=== PATIENT | female | born 1950 | race Caucasian/White ===

== ENCOUNTER 2016-09-29 13:27 | Observation (INO) ==
[2016-09-29] MEDS ORDERED: 0.9 % Sodium Chloride 1,000 ML ONE ×3 (13:51→20:01)
[2016-09-29] MEDS ORDERED: 0.9 % Sodium Chloride 1,000 ML IVC ONE (13:53)
--- NOTE | 2016-09-29 13:59 | Emergency Department Note ---
Disposition Clinical Impression: Generalized muscle weakness, Hyponatremia Hypotension Qualifiers: Hypotension type: unspecified hypotension type Qualified Code(s): I95.9 - Hypotension, unspecified Disposition: Admitted As Inpatient Condition: Good Referrals: Tanner Thomas CNP [Primary Care Provider] - Forms: Work/School Release, ED Satisfaction Letter Time of Disposition: 17:47 Weakness HPI - General Chief complaint: ED General Medical Stated complaint: getting in car, started to fall, helped to Source: patient, family () Mode of arrival: EMS Limitations: no limitations Nursing Notes Reviewed: Yes Vital Signs Reviewed: Yes - History of Present Illness Pt Subjective Complaint: generalized weakness/fatigue Onset (ago): week(s) Duration: constant Location: generalized Migration: none Pain Severity: none Pain Scale: 0 Improves with: none Worsens with: movement, exertion Context: history of similar (Hospitalized on 09/18/16 for the same. Discharged on 09/21/16. She was also noted to have urinary tract infection at that time and is currently still on antibiotics.) - Related Data Home Medications Medication Instructions Recorded Confirmed Abatacept [Orencia] 125 mg SQ QWEEK 09/18/16 09/29/16 Leflunomide 20 mg PO DAILY 09/18/16 09/29/16 Lisinopril [Zestril] 5 mg PO DAILY 09/18/16 09/29/16 Metoprolol XL (24 HR) Succ [Toprol 50 mg PO DAILY 09/18/16 09/29/16 Xl] PredniSONE 3 mg PO DAILY 09/18/16 09/29/16 Previous Rx's Medication Instructions Recorded OxyCODONE Immed Rel [Roxicodone 5 10 mg PO Q6HR PRN #14 tablet 09/21/16 MG] Pregabalin [Lyrica] 25 mg PO TID #90 capsule 09/21/16 Ciprofloxacin [Cipro] 500 mg PO BID #28 tablet 09/22/16 Allergies Allergy/AdvReac Type Severity Reaction Status Date / Time No Known Allergies Allergy Verified 09/17/16 17:14 All systems ED: reviewed and negative except as stated. Constitutional: Denies: fever, chills Eyes: Denies: vision change ENT ED: Denies: ear pain, throat pain Cardiovascular: Denies: chest pain, palpitations Respiratory: Denies: cough, dyspnea, wheezes Gastrointestinal: Denies: abdominal pain, nausea, vomiting, diarrhea, hematemesis, melena, hematochezia Genitourinary: Denies: urgency, dysuria, frequency Musculoskeletal: Reports: back pain (Chronic, unchanged.) Integumentary: Denies: rash Neurological: Reports: weakness (Diffuse). Denies: headache, numbness, paresthesias Endocrine: Reports: fatigue Past Medical History - Past Medical History Medical history: Reports: arthritis, hypertension, osteoporosis, RA, renal disease, other Surgical history: Reports: other Psychiatric history: Reports: no psych history, other - Social History Smoking Status: Never smoker Smokeless Tobacco Status: No Alcohol use: Reports: none Drug use: Reports: none Physical Exam - General Limitations: no limitations General appearance: alert, in no apparent distress, obese - Head Head exam: atraumatic, normocephalic - Eye Eye exam: Present: PERRL, EOMI, other (Conjunctiva are pale). Absent: scleral icterus, conjunctival injection - ENT ENT exam: normal oropharynx (Oral mucosa is pale), mucous membranes moist, TM's normal bilaterally - Neck Neck exam: Present: normal inspection, full ROM, trachea midline. Absent: lymphadenopathy, thyromegaly - Chest Chest inspection: Present: normal inspection, symmetric chest wall rise - Respiratory Respiratory exam: Present: normal lung sounds bilaterally. Absent: respiratory distress, wheezes - Cardiovascular Cardiovascular exam: Present: regular rate, normal rhythm, normal heart sounds - Abdominal Exam Abdominal exam: Present: soft, Non-Tender, other (Obese). Absent: organomegaly , mass - Extremities Exam Extremities exam: Present: full ROM. Absent: tenderness, normal capillary refill (Slow capillary refill) - Neurological Exam Neurological exam: Present: alert, oriented X3, CN II-XII intact, reflexes normal. Absent: motor sensory deficit (Diffusely weak, symmetrical lower extremity strength. 3+ grants and contracts assistant on the right, 2+ on the left.) - Psychiatric Psychiatric exam: Present: normal affect, normal mood - Skin Skin exam: Present: warm, dry, pallor. Absent: cyanosis, diaphoresis Course - Reevaluation(s) Reevaluation #1: The patient states that she is Congregational, she does not want any blood products. Time: 14:01 Reevaluation #2: 1 L of normal saline infused. The patient's blood pressure is 120/76. Her initial troponin is 0.04. A repeat 2 hour level has been ordered. Her sodium today is 123, it was 136 at discharge from the hospital approximately a week ago. Time: 14:57 Reevaluation #3: Discussed with Dr. Snow. He accepts the patient for admission. Time: 17:25 Vital Signs Temperature 97.3 F L 09/29/16 13:30 Blood Pressure 83/38 09/29/16 13:30 Temperature 97.3 F L 09/29/16 13:33 Pulse Rate 91 09/29/16 17:30 Respiratory Rate 18 09/29/16 17:30 Blood Pressure 127/71 09/29/16 17:30 O2 Sat by Pulse Oximetry 95 09/29/16 17:30 Oxygen Delivery Oxygen Delivery Room Air Weakness - MDM Narrative Medical decision making narrative: She has significant hyponatremia which is likely contributing factor to her generalized weakness. Her grants and contracts assistant strength decrease her left hand is unchanged from her previous exam is consistent with her cervical radiculopathy. Her hypotension corrected with IV normal saline. She work or admission, she is too weak to go home. We will replace her sodium, she may need further workup for the etiology of her hyponatremia. She may need placement for rehabilitation. - Differential Diagnosis Differential Diagnosis: Likely: acute myocardial infarction, anemia, hypoglycemia, rhabdomyolysis, sepsis/infection, dehydration, medication effect, [place], metabolic, thyroid/endocrine disorder - Medical Records Medical records reviewed: Yes I reviewed the patient's medical records. Review of her discharge summary shows that on her physical exam grasping strength in her left hand was weaker than her right. On 09/18/16 and her hemoglobin was 11.0 and her sodium was 123. - Lab Data Lab results reviewed: Yes I reviewed the patient's lab results. Result diagrams: 09/29/16 13:45 09/29/16 13:45 Lab Results 09/29/16 09/29/16 09/29/16 Range/Units 13:45 13:45 13:45 WBC 5.4 (4.3-11.1) K/mcL RBC 3.96 (3.82-4.97) M/mcL Hgb 10.9 L (11.5-15.4) g/dL Hct 31.3 L (35.3-44.9) % MCV 79.0 L (83.0-100.0) fL MCH 27.5 L (28.0-33.3) pg MCHC 34.8 (31.6-35.5) g/dL RDW 14.2 (11.5-14.5) % Plt Count 176 (140-400) K/mcL MPV 11.4 (9.4-12.4) fL Immature Gran % 0.6 (0-4) % Seg Neutrophils % 76.8 % Lymphocytes % 9.7 % Monocytes % 10.6 % Eosinophils % 1.7 % Basophils % 0.6 % Neutrophils # 4.1 (1.6-8.9) K/mcL Lymphocytes # 0.5 L (0.6-4.6) K/mcL Monocytes # 0.6 (0.0-1.3) K/mcL Eosinophils # 0.1 (0.0-0.6) K/mcL Basophils # 0.0 (0.0-0.2) K/mcL VBG Lactic Acid (0.5-2.2) mmol/L Sodium 123 L (136-145) mEq/L Potassium 4.8 H (3.5-4.5) mEq/L Chloride 90 L (98-109) mEq/L Carbon Dioxide 19 (19-29) mEq/L BUN 19 (7-20) mg/dL Creatinine 0.99 (0.57-1.11) mg/dL Est GFR ( Amer) > 60 (> 60) Est GFR (Non-Af Amer) 56 L (> 60) BUN/Creatinine Ratio 19 (6-26) Glucose 104 H (70-99) mg/dL Calculated Osmolality 259 L (280-300) Calcium 9.6 (8.6-10.8) mg/dL Total Bilirubin 0.5 (0.2-1.2) mg/dL AST 44 H (5-34) Units/L ALT 34 (0-55) Units/L Alkaline Phosphatase 220 H (38-126) Units/L Creatine Kinase (29-168) Units/L Troponin I 0.04 H* (0-0.03) ng/mL Serum Total Protein 6.1 (6.0-8.3) g/dL Albumin 2.2 L (3.5-5.0) g/dL Globulin 3.9 H (2.4-3.5) g/dL Albumin/Globulin Ratio 0.6 L (1.1-2.2) TSH (0.350-4.840) mcIU/mL Urine Color (Yellow) Urine Clarity (Clear) Urine pH (5.0-8.0) pH Units Ur Specific [place] (1.010-1.025) Urine Protein (Neg-Trace) mg/dL Urine Glucose (UA) (Normal) mg/dL Urine Ketones (Negative) mg/dL Urine Blood (Negative) Urine Nitrite (Negative) Urine Bilirubin (Negative) Urine Urobilinogen (Normal) mg/dL Ur Leukocyte Esterase (Negative) Urine Microscopic RBC (0-3) per hpf Urine Microscopic WBC (0-3) per hpf Ur Squamous Epith Cells (None-Few) per lpf Ur Renal Epithelial Cell (None-Few) per hpf Amorphous Sediment (Few) Ur Culture Indicated? (NO) 09/29/16 09/29/16 09/29/16 Range/Units 13:45 13:51 14:12 WBC (4.3-11.1) K/mcL RBC (3.82-4.97) M/mcL Hgb (11.5-15.4) g/dL Hct (35.3-44.9) % MCV (83.0-100.0) fL MCH (28.0-33.3) pg MCHC (31.6-35.5) g/dL RDW (11.5-14.5) % Plt Count (140-400) K/mcL MPV (9.4-12.4) fL Immature Gran % (0-4) % Seg Neutrophils % % Lymphocytes % % Monocytes % % Eosinophils % % Basophils % % Neutrophils # (1.6-8.9) K/mcL Lymphocytes # (0.6-4.6) K/mcL Monocytes # (0.0-1.3) K/mcL Eosinophils # (0.0-0.6) K/mcL Basophils # (0.0-0.2) K/mcL VBG Lactic Acid 1.9 (0.5-2.2) mmol/L Sodium (136-145) mEq/L Potassium (3.5-4.5) mEq/L Chloride (98-109) mEq/L Carbon Dioxide (19-29) mEq/L BUN (7-20) mg/dL Creatinine (0.57-1.11) mg/dL Est GFR ( Amer) (> 60) Est GFR (Non-Af Amer) (> 60) BUN/Creatinine Ratio (6-26) Glucose (70-99) mg/dL Calculated Osmolality (280-300) Calcium (8.6-10.8) mg/dL Total Bilirubin (0.2-1.2) mg/dL AST (5-34) Units/L ALT (0-55) Units/L Alkaline Phosphatase (38-126) Units/L Creatine Kinase 360 H (29-168) Units/L Troponin I (0-0.03) ng/mL Serum Total Protein (6.0-8.3) g/dL Albumin (3.5-5.0) g/dL Globulin (2.4-3.5) g/dL Albumin/Globulin Ratio (1.1-2.2) TSH 1.998 (0.350-4.840) mcIU/mL Urine Color Yellow (Yellow) Urine Clarity Clear (Clear) Urine pH 5.5 (5.0-8.0) pH Units Ur Specific [place] <= 1.005 L (1.010-1.025) Urine Protein Negative (Neg-Trace) mg/dL Urine Glucose (UA) Normal (Normal) mg/dL Urine Ketones Negative (Negative) mg/dL Urine Blood Small H (Negative) Urine Nitrite Negative (Negative) Urine Bilirubin Negative (Negative) Urine Urobilinogen Normal (Normal) mg/dL Ur Leukocyte Esterase Negative (Negative) Urine Microscopic RBC 0-3 (0-3) per hpf Urine Microscopic WBC 0-3 (0-3) per hpf Ur Squamous Epith Cells Few (None-Few) per lpf Ur Renal Epithelial Cell Moderate H (None-Few) per hpf Amorphous Sediment Few (Few) Ur Culture Indicated? NO (NO) 09/29/16 Range/Units 16:06 WBC (4.3-11.1) K/mcL RBC (3.82-4.97) M/mcL Hgb (11.5-15.4) g/dL Hct (35.3-44.9) % MCV (83.0-100.0) fL MCH (28.0-33.3) pg MCHC (31.6-35.5) g/dL RDW (11.5-14.5) % Plt Count (140-400) K/mcL MPV (9.4-12.4) fL Immature Gran % (0-4) % Seg Neutrophils % % Lymphocytes % % Monocytes % % Eosinophils % % Basophils % % Neutrophils # (1.6-8.9) K/mcL Lymphocytes # (0.6-4.6) K/mcL Monocytes # (0.0-1.3) K/mcL Eosinophils # (0.0-0.6) K/mcL Basophils # (0.0-0.2) K/mcL VBG Lactic Acid (0.5-2.2) mmol/L Sodium (136-145) mEq/L Potassium (3.5-4.5) mEq/L Chloride (98-109) mEq/L Carbon Dioxide (19-29) mEq/L BUN (7-20) mg/dL Creatinine (0.57-1.11) mg/dL Est GFR ( Amer) (> 60) Est GFR (Non-Af Amer) (> 60) BUN/Creatinine Ratio (6-26) Glucose (70-99) mg/dL Calculated Osmolality (280-300) Calcium (8.6-10.8) mg/dL Total Bilirubin (0.2-1.2) mg/dL AST (5-34) Units/L ALT (0-55) Units/L Alkaline Phosphatase (38-126) Units/L Creatine Kinase (29-168) Units/L Troponin I 0.04 H* (0-0.03) ng/mL Serum Total Protein (6.0-8.3) g/dL Albumin (3.5-5.0) g/dL Globulin (2.4-3.5) g/dL Albumin/Globulin Ratio (1.1-2.2) TSH (0.350-4.840) mcIU/mL Urine Color (Yellow) Urine Clarity (Clear) Urine pH (5.0-8.0) pH Units Ur Specific [place] (1.010-1.025) Urine Protein (Neg-Trace) mg/dL Urine Glucose (UA) (Normal) mg/dL Urine Ketones (Negative) mg/dL Urine Blood (Negative) Urine Nitrite (Negative) Urine Bilirubin (Negative) Urine Urobilinogen (Normal) mg/dL Ur Leukocyte Esterase (Negative) Urine Microscopic RBC (0-3) per hpf Urine Microscopic WBC (0-3) per hpf Ur Squamous Epith Cells (None-Few) per lpf Ur Renal Epithelial Cell (None-Few) per hpf Amorphous Sediment (Few) Ur Culture Indicated? (NO) - Radiology Data Radiology results reviewed: Yes I reviewed the patient's radiology results. ITS Impressions Chest X-Ray 09/29/16 13:51 IMPRESSION: Stable portable study. D/ / Liberty Mcadams Cha, MD / Liberty Mcadams Cha, MD Interpreting Provider: Liberty Mcadams Cha, MD - EKG Data EKG attestation: Yes I reviewed and interpreted this EKG. EKG results narrative: Sinus tachycardia, rate of 109, nonspecific ST-T changes. Rhythm strip shows sinus rhythm with a rate of 109, IN interval 170 ms, QRS of 87 ms with no other ectopy as interpreted by me. This is compared to a tracing dated 09/17/16, no change other than the sinus tachycardia.
[2016-09-29 14:11] LABS: Basophils % 0.6 %; Eosinophils # 0.1 K/mcL (0.0-0.6); Eosinophils % 1.7 %; Hematocrit 31.3 % (35.3-44.9); Hemoglobin 10.9 g/dL (11.5-15.4); Immature Granulocytes % 0.6 % (0-4); Lymphocytes # 0.5 K/mcL (0.6-4.6); Lymphocytes % 9.7 %; Mean Corpuscular HGB Conc 34.8 g/dL (31.6-35.5); Mean Corpuscular Hemoglobin 27.5 pg (28.0-33.3); Mean Platelet Volume 11.4 fL (9.4-12.4); Monocytes # 0.6 K/mcL (0.0-1.3); Monocytes % 10.6 %; Neutrophils # 4.1 K/mcL (1.6-8.9); Platelet Count 176 K/mcL (140-400); Red Blood Count 3.96 M/mcL (3.82-4.97); Red Cell Distribution Width 14.2 % (11.5-14.5); Segmented Neutrophils % 76.8 %
[2016-09-29 14:25] LABS: Alanine Aminotransferase 34 Units/L (0-55); Albumin 2.2 g/dL (3.5-5.0); Albumin/Globulin Ratio 0.6 (1.1-2.2); Alkaline Phosphatase 220 Units/L (38-126); Aspartate Amino Transferase 44 Units/L (5-34); BUN/Creatinine Ratio 19 (6-26); Bilirubin,Total 0.5 mg/dL (0.2-1.2); Blood Urea Nitrogen 19 mg/dL (7-20); Calcium 9.6 mg/dL (8.6-10.8); Carbon Dioxide 19 mEq/L (19-29); Chloride 90 mEq/L (98-109); Globulin 3.9 g/dL (2.4-3.5); Glucose 104 mg/dL (70-99); Osmolality,Calculated 259 (280-300); Potassium 4.8 mEq/L (3.5-4.5); Sodium 123 mEq/L (136-145); Total Protein 6.1 g/dL (6.0-8.3); eGFR For African Americans > 60 (> 60); eGFR For Non-African Americans 56 (> 60)
[2016-09-29 14:44] LABS: Thyroid Stimulating Hormone 1.998 mcIU/mL (0.350-4.840)
[2016-09-29] MEDS ORDERED: 0.9 % Sodium Chloride 1,000 ML IVC SCH ×3 (15:00→19:16)
[2016-09-29 16:29] LABS: Bilirubin,Urine Negative (Negative); Blood,Urine Small (Negative); Clarity,Urine Clear (Clear); Color,Urine Yellow (Yellow); Glucose,Urine (UA) Normal (Normal); Ketones,Urine Negative (Negative); Leukocyte Esterase,Urine Negative (Negative); Nitrite,Urine Negative (Negative); PH,Urine 5.5 pH Units (5.0-8.0); Protein,Urine Negative (Neg-Trace); Specific Gravity,Urine <= 1.005 (1.010-1.025); Urobilinogen,Urine Normal (Normal)
[2016-09-29 16:51] LABS: RBC,Urine 0-3 per hpf (0-3); Renal Epithelial Cells,Urine Moderate per hpf (None-Few); Squamous Epithelial Cell,Urine Few per lpf (None-Few); WBC,Urine 0-3 per hpf (0-3)
[2016-09-29 16:52] LABS: Amorphous Sediment,Urine Few (Few)
[2016-09-29] MEDS ORDERED: Acetaminophen 325 MG TABLET PO ONE (18:53)
[2016-09-29] MEDS ORDERED: ABATACEPT 125 MG SQ SCH (19:16)
[2016-09-29] MEDS ORDERED: Naloxone 0.4 MG/ML INJ IVP PRN ×3 (19:16→20:01)
[2016-09-29] MEDS ORDERED: *HR* OxyCODONE Immed Rel 5 MG TABLET PO PRN (19:16)
[2016-09-29] MEDS ORDERED: Pregabalin 25 MG CAPSULE PO SCH (21:00)
[2016-09-29] MEDS: 0.9 % Sodium Chloride 1,000 ML IVC SCH (21:12)
[2016-09-29] MEDS: Pregabalin 25 MG CAPSULE PO SCH (21:15)
--- NOTE | 2016-09-29 21:32 | Electrocardiograph Report ---
[facility] Test Date: 2016-09-29 Pat Name: Fanta Leiva Department: [id number] Room: [facility] Gender: F Supervisor [employer]: : 1950 Requested By: Order Number: [id number] Leobardo MD: Sara Koenig Measurements Intervals [place] Rate: 109 P: 28 WV: 170 QRS: 37 QRSD: 87 T: 27 QT: 336 QTc: 400 Interpretive Statements SINUS TACHYCARDIA ABNORMAL RHYTHM ECG Electronically Signed On 09-29-2016 21:30:53 EST by Sara Koenig
[2016-09-29] MEDS: *HR* OxyCODONE Immed Rel 5 MG TABLET PO PRN (22:43)
[2016-09-30] MEDS: 0.9 % Sodium Chloride 1,000 ML IVC SCH ×4 (04:47→12:26)
[2016-09-30] MEDS ORDERED: *HR* Enoxaparin 40 MG/0.4 ML SYRINGE SQ SCH ×2 (06:00)
[2016-09-30 08:53] LABS: BUN/Creatinine Ratio 18 (6-26); Blood Urea Nitrogen 15 mg/dL (7-20); Calcium 8.9 mg/dL (8.6-10.8); Carbon Dioxide 21 mEq/L (19-29); Chloride 104 mEq/L (98-109); Glucose 81 mg/dL (70-99); Osmolality,Calculated 278 (280-300); Potassium 3.8 mEq/L (3.5-4.5); Sodium 134 mEq/L (136-145); eGFR For African Americans > 60 (> 60); eGFR For Non-African Americans > 60 (> 60)
[2016-09-30] MEDS ORDERED: Leflunomide [Leflunomide] 20 MG PO SCH (09:00)
[2016-09-30] MEDS: Pregabalin 25 MG CAPSULE PO SCH ×3 (09:22→20:46)
[2016-09-30] MEDS: Leflunomide [Leflunomide] 20 MG PO SCH (09:22)
--- NOTE | 2016-09-30 11:51 | Internal Med History&Physical ---
Date of Encounter: 09/30/16 Time of Encounter: 11:10 Assessment and Plan (1) Hyponatremia Current visit: Yes Status: Acute She admits she drinks 3-4 quarts of liquid daily. Will decrease fluid intake and monitor lab work (2) Weight loss Current visit: Yes Status: Acute Will ordered CT of chest and abdomen/pelvis. TSH was normal in emergency room. (3) Anemia Current visit: No Status: Chronic We will order anemia testing in a.m. Qualifiers: Anemia type: unspecified type Qualified Code(s): D64.9 - Anemia, unspecified (4) CKD (chronic kidney disease) Current visit: No Status: Chronic We will monitor renal indices. Qualifiers: Chronic kidney disease stage: stage 3 (moderate) Qualified Code(s): N18.3 - Chronic kidney disease, stage 3 (moderate) (5) Hx of rheumatoid arthritis Current visit: No Status: Chronic Internal Medicine - H&P: HPI Chief complaint: Hyponatremia and fall Admitted From: Home Plans for Post Hospital Care: Home History of present illness: Ms. Leiva is a 66 year old female who came to the emergency room after having a fall while attempting to get in her car. Her caught her before she hit the ground and sustained any significant injuries. She was evaluated in emergency room and found to have hyponatremia and microcytic anemia. She was admitted to [facility] for ongoing care needs. She was hospitalized at [facility] September 18 with progressive upper extremity weakness more on the left than the right. She had MRI of her head and cervical spine. There was multilevel degenerative disc disease exacerbating a congenitally narrow cervical spinal canal. There was minimal myelomalacia seen at C4-6. The MRI of the brain was generally unremarkable. She was seen by neurology and neurosurgery. Conservative medical therapy rather than surgery was recommended at this time. She states she has been getting generally weaker for several years with decreased muscle strength in her legs and arms. She uses a walker to ambulate at home but also has a motorized power chair that she bought without specific prescription by a PCP. She has history of rheumatoid arthritis diagnosed many years ago. She was told she had some features of lupus but confirmatory tests were not positive. She had sciatica in the past. She denies gout or other documented bone joint or muscle disorders. She does not recall having LS spine evaluation or EMG/nerve conduction studies. Past Med Surg Social Fam HX - Past Medical History Medical history: arthritis, hypertension, osteoporosis, RA, renal disease, other Psychiatric history: no psych history, other - Past Surgical History Surgical History: other - Social History Smoking Status: Never smoker Smokeless Tobacco Status: No Alcohol use: none Drug use: none - Family History Mother Living Status: Hx Family Cardiac Disorders: Yes (aortic anyeurism) Internal Medicine - H&P: Meds Abatacept [Orencia] 125 mg SQ QWEEK 09/18/16 [History] Leflunomide 20 mg PO DAILY 09/18/16 [History] Lisinopril [Zestril] 5 mg PO DAILY 09/18/16 [History] Metoprolol XL (24 HR) Succ [Toprol Xl] 50 mg PO DAILY 09/18/16 [History] PredniSONE 3 mg PO DAILY 09/18/16 [History] OxyCODONE Immed Rel [Roxicodone 5 MG] 10 mg PO Q6HR PRN #14 tablet 09/21/16 [Rx] Pregabalin [Lyrica] 25 mg PO TID #90 capsule 09/21/16 [Rx] Ciprofloxacin [Cipro] 500 mg PO BID #28 tablet 09/22/16 [Rx] Allergies No Known Allergies Allergy (Verified 09/17/16 17:14) All Systems PM: A 10-system review of systems was performed and is negative for pertinent findings except as documented above in the HPI. Review of systems: Gen.: She states her weight has decreased from 237 pounds one year ago to present weight of approximately 180 pounds. This was unintentional. Cardiovascular: She has history of hypertension but denies MS heart failure angina DVT or pulmonary embolus Respiratory: She is a lifelong nonsmoker and has no known chronic lung disease GI: She denies disorders of her liver gallbladder or exocrine pancreas : She has chronic kidney disease stage III and follows with Dr. Vasquez. She denies other kidney or bladder disorders Neurologic: She denies large distribution strokes or seizures. Endocrine: She denies diabetes thyroid disease or hyperlipidemia Hematology/oncology: She has been diagnosed with anemia. She denies internal malignancies Psychiatric: She has feelings of depression at times. She denies other mental health issues Musk skeletal: As per history of present illness - Constitutional Vitals: Temp Pulse Resp BP Pulse Ox 98.2 F 104 18 107/70 97 09/30/16 10:29 09/30/16 10:29 09/30/16 10:29 09/30/16 10:29 09/30/16 10:29 Exam: Gen.: She is a well-developed well-nourished female lying in bed who appears in no significant distress at present time. HEENT: Head is atraumatic and normocephalic. Eyes: EOMI. There is no scleral icterus. Mouth: Mucosa is moist. Neck: Supple and nontender. There is no thyromegaly or adenopathy noted. Heart: Regular rate approximately 104/m. No murmurs or gallops are heard. Lungs: No wheezes or crackles heard. Abdomen: Soft and nontender. No masses or guarding are noted. 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 She has some contractures at the DIP joints on some fingers. She has slight ulnar deviation present. There is no pitting edema of her feet or lower legs. Neurologic: Mental status: She is talkative and a good historian. Cranial nerves: Smile is symmetric. Forehead wrinkles bilaterally. Tongue protrudes midline. EOMI. Motor: She has weakness on plantar flexion and dorsiflexion of the right ankle. She has normal strength on plantar flexion of the left foot but weakness on attempted dorsiflexion. She has no pronator drift. Cerebellar : Finger to nose is intact bilaterally. Skin: Warm and dry Internal Med - H&P Results - Labs CBC & Chem 7: 09/29/16 13:45 09/30/16 07:38 Labs: BMP 09/30/16 07:38 Sodium 134 L D Potassium 3.8 D Chloride 104 Carbon Dioxide 21 BUN 15 Creatinine 0.84 Glucose 81 Calcium 8.9 Cardiac Enzymes 09/30/16 Range/Units 07:38 Troponin I 0.05 H* (0-0.03) ng/mL
[2016-09-30] MEDS: *HR* OxyCODONE Immed Rel 5 MG TABLET PO PRN ×2 (12:31→21:14)
[2016-10-01] MEDS: *HR* Enoxaparin 40 MG/0.4 ML SYRINGE SQ SCH (06:07)
[2016-10-01 06:32] LABS: Basophils % 1.6 %; Eosinophils # 0.1 K/mcL (0.0-0.6); Eosinophils % 7.3 %; Hematocrit 26.2 % (35.3-44.9); Hemoglobin 8.5 g/dL (11.5-15.4); Immature Granulocytes % 0.5 % (0-4); Lymphocytes # 0.6 K/mcL (0.6-4.6); Lymphocytes % 30.2 %; Mean Corpuscular HGB Conc 32.4 g/dL (31.6-35.5); Mean Corpuscular Volume 83.2 fL (83.0-100.0); Mean Platelet Volume 11.4 fL (9.4-12.4); Monocytes # 0.4 K/mcL (0.0-1.3); Monocytes % 18.2 %; Neutrophils # 0.8 K/mcL (1.6-8.9); Platelet Count 177 K/mcL (140-400); Red Blood Count 3.15 M/mcL (3.82-4.97); Red Cell Distribution Width 14.8 % (11.5-14.5); Segmented Neutrophils % 42.2 %
[2016-10-01 07:17] LABS: BUN/Creatinine Ratio 13 (6-26); Blood Urea Nitrogen 10 mg/dL (7-20); Calcium 9.2 mg/dL (8.6-10.8); Carbon Dioxide 18 mEq/L (19-29); Chloride 108 mEq/L (98-109); Glucose 77 mg/dL (70-99); Osmolality,Calculated 278 (280-300); Potassium 3.9 mEq/L (3.5-4.5); Sodium 135 mEq/L (136-145); Uric Acid 6.3 mg/dL (2.6-6.0); eGFR For African Americans > 60 (> 60); eGFR For Non-African Americans > 60 (> 60)
[2016-10-01 07:58] LABS: Anisocytosis 2+ (Not Present); Platelet Estimate Normal (Normal); Poikilocytosis 2+ (Not Present)
[2016-10-01 09:05] LABS: Folate 9.6 ng/mL (7.0-31.4)
[2016-10-01] MEDS: Leflunomide [Leflunomide] 20 MG PO SCH (09:19)
[2016-10-01] MEDS: *HR* OxyCODONE Immed Rel 5 MG TABLET PO PRN ×2 (09:30→22:20)
[2016-10-01] MEDS: Pregabalin 25 MG CAPSULE PO SCH ×3 (09:30→20:33)
[2016-10-01 13:53] LABS: % Iron Saturation 17 % (15-50); Iron 30 mcg/dL (50-170); Transferrin 124 mg/dL (180-382)
[2016-10-01 14:07] LABS: Ferritin 1100 ng/ml (5-204)
--- NOTE | 2016-10-01 14:27 | Discharge Summary ---
Date of Encounter: 10/01/16 Time of Encounter: 12:30 - Discharge Diagnosis (1) Hyponatremia Priority: Primary Status: Acute (2) Weight loss Priority: Secondary Status: Chronic (3) Anemia Priority: Secondary Status: Chronic Qualifiers: Anemia type: unspecified type Qualified Code(s): D64.9 - Anemia, unspecified (4) CKD (chronic kidney disease) Priority: Secondary Status: Chronic Qualifiers: Chronic kidney disease stage: stage 3 (moderate) Qualified Code(s): N18.3 - Chronic kidney disease, stage 3 (moderate) (5) Hx of rheumatoid arthritis Priority: Secondary Status: Chronic - Discharge Medications Home Medications: Abatacept [Orencia] 125 mg SQ QWEEK 09/18/16 [History] Leflunomide 20 mg PO DAILY 09/18/16 [History] Lisinopril [Zestril] 5 mg PO DAILY 09/18/16 [History] Metoprolol XL (24 HR) Succ [Toprol Xl] 50 mg PO DAILY 09/18/16 [History] PredniSONE 3 mg PO DAILY 09/18/16 [History] OxyCODONE Immed Rel [Roxicodone 5 MG] 10 mg PO Q6HR PRN #14 tablet 09/21/16 [Rx] Pregabalin [Lyrica] 25 mg PO TID #90 capsule 09/21/16 [Rx] Allergies/Adverse Reactions: Allergies No Known Allergies Allergy (Verified 09/17/16 17:14) Procedures/tests Complete & Pending: Procedures Performed prior 72 hours Category Date Time Status CT abd pelvis wo no iv no oral [CT] Routine Cat Scan 09/30/16 11:[address] chest wo con [CT] Routine Cat Scan 09/30/16 11:[address] lumbar spine wo con [CT] Routine Cat Scan 09/30/16 11:59 Draft Date of admission: 09/29/16 18:45 Primary care physician: Tanner Thomas CNP Consults: 09/30/16 11:40 Consult to Occupational Therapy [CONS] Routine Comment: Evaluate, develop and implement POC Consult to Physical Therapy [CONS] Routine Comment: Evaluate, develop and implement POC - Patient Status Disposition: Home Health Service Condition: Good Overall status at discharge: patient is progressing back to baseline - Discharge Instructions Follow Up With: Cecil,Ali N, SOFTWARE TEST TECHNICIAN [Primary Care Provider] - 1 week - Diet and Activity Activity: as per physical therapy, resume usual activities as tolerated Hospital course: Ms. Leiva is a 66 year old female who came to the emergency room after having a fall while attempting to get in her car. Her caught her before she hit the ground and sustained any significant injuries. She was evaluated in emergency room and found to have hyponatremia and microcytic anemia. She was admitted to [facility] for ongoing care needs. Initial orders were written by the emergency room physician. I saw her on September 30 and performed the history and physical. Repeat lab work showed serum sodium rising to 135 by the day of discharge. Her oral intake was not restricted. Uncertain if the initial sodium level of 123 was accurate. Anemia testing showed iron 30, transferrin saturation 17% (normal), ferritin 1100, B12 721, and folate 9.6. I do not feel she would benefit from iron therapy. ESR returned elevated at 84. I will let her PCP and party coordinator further address this. She had physical therapy and occupational therapy evaluations. She felt slightly improved and more stable on ambulation on October 01. CT of chest, abdomen, and pelvis as well as LS spine were done to further evaluate her weight loss and weakness. No significant pathologic findings were found in the chest abdomen or pelvis. She had multilevel degenerative changes in the lumbar spine with generalized disc bulge at L2-3 resulting in moderate narrowing of the central canal. I will let her PCP and/or party coordinator further evaluate this if needed. On October 01 she felt stable for discharge home. She will have home health nursing with home PT and OT. She will follow with primary care provider within one week. - Time Spent with Patient Total time spent providing and/or coordinating discharge services: - Constitutional Vitals: Temp Pulse Resp BP Pulse Ox 98.1 F 104 16 132/64 96 10/01/16 10:17 10/01/16 10:17 10/01/16 10:17 10/01/16 10:10/01/16 10:17
--- NOTE | 2016-10-01 14:45 | Physician Discharge Referral ---
Home Health/Hosp Referral Info Transfer to: Home Health Attending Provider: Edy Provider in Charge Post Discharge: PCP (Tanner Thomas CNP) - Diagnosis (1) Hyponatremia Priority: Primary Status: Resolved (2) Weight loss Priority: Secondary Status: Chronic (3) Anemia Priority: Secondary Status: Chronic (4) CKD (chronic kidney disease) Priority: Secondary Status: Chronic (5) Hx of rheumatoid arthritis Priority: Secondary Status: Chronic - Respiratory Orders Smoking Cessation: Smoking cessation has been advised. For more information, call the [place] Tobacco Quit Line at 7-307-XIAV-NOW. - Diet/Nutrition Diet/Nutrition Orders: Regular - Activity Activity Orders: Walker - Services Needed Following services are medically necessary services: Nursing, Home Health Aide, Physical Therapy, Occupational Therapy - Transfer Medications Home Medications: Abatacept [Orencia] 125 mg SQ QWEEK 09/18/16 [History] Leflunomide 20 mg PO DAILY 09/18/16 [History] Lisinopril [Zestril] 5 mg PO DAILY 09/18/16 [History] Metoprolol XL (24 HR) Succ [Toprol Xl] 50 mg PO DAILY 09/18/16 [History] PredniSONE 3 mg PO DAILY 09/18/16 [History] OxyCODONE Immed Rel [Roxicodone 5 MG] 10 mg PO Q6HR PRN #14 tablet 09/21/16 [Rx] Pregabalin [Lyrica] 25 mg PO TID #90 capsule 09/21/16 [Rx] Allergies/Adverse Reactions: Allergies No Known Allergies Allergy (Verified 09/17/16 17:14) Certification: Further, I certify that my clinical findings support that this patient is homebound (i.e. absences from home require considerable and taxing effort and are for medical reasons or latter day services or infrequently or short duration when for other reasons) because: Homebound Reason: Leaving home requires considerable and taxing effort due to condition (Rheumatoid arthritis, deconditioning, weakness) Attestation: My signature below is to certify that this patient is under my care and that I, or nurse practitioner, or a physician's assistant grocery store manager working with me, has a face-to -face encounter with this patient.
[2016-10-02] MEDS: *HR* Enoxaparin 40 MG/0.4 ML SYRINGE SQ SCH (06:28)
[2016-10-02] MEDS: Pregabalin 25 MG CAPSULE PO SCH ×3 (09:08→21:08)
[2016-10-02] MEDS: *HR* OxyCODONE Immed Rel 5 MG TABLET PO PRN ×2 (09:10→21:09)
[2016-10-02] MEDS: Leflunomide [Leflunomide] 20 MG PO SCH (09:12)
--- NOTE | 2016-10-02 15:12 | Internal Med Progress Note ---
Date of Encounter: 10/02/16 Time of Encounter: 15:05 - Assessment and plan (1) Hyponatremia Current Visit: Yes Status: Resolved Assessment and plan: October 02. Resolved. Continue present regimen (2) Weight loss Current Visit: Yes Status: Chronic Assessment and plan: October 02. CT scans of chest, abdomen, and pelvis did not show obvious etiology. Her TSH was normal. (3) Anemia Current Visit: No Status: Chronic Assessment and plan: October 02. Will recheck labs in a.m. Qualifiers: Anemia type: unspecified type Qualified Code(s): D64.9 - Anemia, unspecified (4) CKD (chronic kidney disease) Current Visit: No Status: Chronic Assessment and plan: October 02. Her creatinine is 0.7 with estimated GFR greater than 60. Continue present management Qualifiers: Chronic kidney disease stage: stage 3 (moderate) Qualified Code(s): N18.3 - Chronic kidney disease, stage 3 (moderate) (5) Hx of rheumatoid arthritis Current Visit: No Status: Chronic Assessment and plan: October 02. Continue leflunomide and abatacept - Subjective Interval history: October 02. She has no new complaints and feels she is getting slightly stronger. She is awaiting word from her insurance company to approve placement at [facility] - Constitutional Vitals: Temp Pulse Resp BP Pulse Ox 98.3 F 95 18 137/79 99 10/02/16 06:00 10/02/16 06:00 10/02/16 06:00 10/02/16 06:00 10/02/16 06:00 Exam: She is lying in bed and appears in no acute distress. Her affect is bright and cheerful. I reviewed her medications and lab results. Internal Medicine: Result - Labs CBC & Chem 7: 10/01/16 06:14 10/01/16 06:14 - Impressions Impressions Abdomen/Pelvis CT 09/30/16 11:40 IMPRESSION: 1. No finding in the chest, abdomen, or pelvis to account for patient's weight loss. 2. Multilevel degenerative changes in the lumbar spine as listed above, notable for generalized disc bulge at L2-L3 resulting in moderate narrowing of the central canal. 3. Mild cardiomegaly. 4. Evidence of prior granulomatous disease. 5. Coronary artery disease. 6. Cholelithiasis. No CT evidence of cholecystitis. 7. Small fat containing umbilical hernia. There is laxity of the anterior abdominal wall. D/ / 09/30/2016 17:37:19 Goyo Daigle MD / luzmaria Interpreting Provider: Goyo Daigle MD Chest CT 09/30/16 11:40 IMPRESSION: 1. No finding in the chest, abdomen, or pelvis to account for patient's weight loss. 2. Multilevel degenerative changes in the lumbar spine as listed above, notable for generalized disc bulge at L2-L3 resulting in moderate narrowing of the central canal. 3. Mild cardiomegaly. 4. Evidence of prior granulomatous disease. 5. Coronary artery disease. 6. Cholelithiasis. No CT evidence of cholecystitis. 7. Small fat containing umbilical hernia. There is laxity of the anterior abdominal wall. D/ / 09/30/2016 17:37:19 Goyo Daigle MD / luzmaria Interpreting Provider: Goyo Daigle MD Lumbar Spine CT 09/30/16 11:59 IMPRESSION: 1. No finding in the chest, abdomen, or pelvis to account for patient's weight loss. 2. Multilevel degenerative changes in the lumbar spine as listed above, notable for generalized disc bulge at L2-L3 resulting in moderate narrowing of the central canal. 3. Mild cardiomegaly. 4. Evidence of prior granulomatous disease. 5. Coronary artery disease. 6. Cholelithiasis. No CT evidence of cholecystitis. 7. Small fat containing umbilical hernia. There is laxity of the anterior abdominal wall. D/ / 09/30/2016 17:37:19 Goyo Daigle MD / luzmaria Interpreting Provider: Goyo Daigle MD Consult Discharge Plan - Plan Referrals: Tanner Thomas, PERFUMER [Primary Care Provider] - 1 week
[2016-10-03] MEDS: *HR* Enoxaparin 40 MG/0.4 ML SYRINGE SQ SCH (06:00)
[2016-10-03] MEDS: Pregabalin 25 MG CAPSULE PO SCH ×3 (10:52→21:28)
[2016-10-03] MEDS: Leflunomide [Leflunomide] 20 MG PO SCH (10:53)
[2016-10-03] MEDS: *HR* OxyCODONE Immed Rel 5 MG TABLET PO PRN ×2 (11:20→21:28)
--- NOTE | 2016-10-03 15:15 | Internal Med Progress Note ---
Date of Encounter: 10/03/16 Time of Encounter: 15:05 - Assessment and plan (1) Hyponatremia Current Visit: Yes Status: Resolved Assessment and plan: October 02. Resolved. Continue present regimen (2) Weight loss Current Visit: Yes Status: Chronic Assessment and plan: October 02. CT scans of chest, abdomen, and pelvis did not show obvious etiology. Her TSH was normal. (3) Anemia Current Visit: No Status: Chronic Assessment and plan: October 02. Will recheck labs in a.m. Qualifiers: Anemia type: unspecified type Qualified Code(s): D64.9 - Anemia, unspecified (4) CKD (chronic kidney disease) Current Visit: No Status: Chronic Assessment and plan: October 02. Her creatinine is 0.7 with estimated GFR greater than 60. Continue present management Qualifiers: Chronic kidney disease stage: stage 3 (moderate) Qualified Code(s): N18.3 - Chronic kidney disease, stage 3 (moderate) (5) Hx of rheumatoid arthritis Current Visit: No Status: Chronic Assessment and plan: October 02. Continue leflunomide and abatacept - Subjective Interval history: October 02. She has no new complaints and feels she is getting slightly stronger. She is awaiting word from her insurance company to approve placement at SNF October 03. She has no new complaints. She is still awaiting word from the insurance company for SNF placement approval - Constitutional Vitals: Temp Pulse Resp BP Pulse Ox 97.8 F 108 16 125/80 100 10/03/16 10:34 10/03/16 10:34 10/03/16 10:34 10/03/16 10:34 10/03/16 10:34 Exam: She is resting comfortably in bed and appears in no acute distress. Her affect is bright and cheerful. Reviewed her medications and lab results. Internal Medicine: Result - Labs CBC & Chem 7: 10/01/16 06:14 10/01/16 06:14 Consult Discharge Plan - Plan Referrals: Tanner Thomas, COUNTY ADVISER [Primary Care Provider] - 1 week
[2016-10-04] MEDS: *HR* Enoxaparin 40 MG/0.4 ML SYRINGE SQ SCH (05:59)
[2016-10-04] MEDS: *HR* OxyCODONE Immed Rel 5 MG TABLET PO PRN ×2 (06:08→21:18)
[2016-10-04] MEDS: Leflunomide [Leflunomide] 20 MG PO SCH (08:11)
[2016-10-04] MEDS: Pregabalin 25 MG CAPSULE PO SCH ×3 (08:11→21:18)
[2016-10-04 08:23] LABS: Basophils % 1.6 %; Eosinophils # 0.2 K/mcL (0.0-0.6); Eosinophils % 9.3 %; Hematocrit 30.7 % (35.3-44.9); Hemoglobin 10.1 g/dL (11.5-15.4); Immature Granulocytes % 0.5 % (0-4); Lymphocytes # 0.7 K/mcL (0.6-4.6); Lymphocytes % 39.3 %; Mean Corpuscular HGB Conc 32.9 g/dL (31.6-35.5); Mean Corpuscular Hemoglobin 27.3 pg (28.0-33.3); Mean Platelet Volume 10.6 fL (9.4-12.4); Monocytes # 0.3 K/mcL (0.0-1.3); Monocytes % 14.2 %; Neutrophils # 0.6 K/mcL (1.6-8.9); Platelet Count 183 K/mcL (140-400); Segmented Neutrophils % 35.1 %
[2016-10-04 08:41] LABS: Alanine Aminotransferase 22 Units/L (0-55); Albumin 2.3 g/dL (3.5-5.0); Albumin/Globulin Ratio 0.6 (1.1-2.2); Alkaline Phosphatase 159 Units/L (38-126); Aspartate Amino Transferase 21 Units/L (5-34); BUN/Creatinine Ratio 15 (6-26); Bilirubin,Total 0.3 mg/dL (0.2-1.2); Blood Urea Nitrogen 12 mg/dL (7-20); Calcium 9.8 mg/dL (8.6-10.8); Carbon Dioxide 25 mEq/L (19-29); Chloride 103 mEq/L (98-109); Globulin 3.9 g/dL (2.4-3.5); Glucose 86 mg/dL (70-99); Osmolality,Calculated 283 (280-300); Potassium 4.2 mEq/L (3.5-4.5); Sodium 137 mEq/L (136-145); Total Protein 6.2 g/dL (6.0-8.3); eGFR For African Americans > 60 (> 60); eGFR For Non-African Americans > 60 (> 60)
--- NOTE | 2016-10-04 10:15 | Internal Med Progress Note ---
Date of Encounter: 10/04/16 Time of Encounter: 10:05 - Assessment and plan (1) Hyponatremia Current Visit: Yes Status: Resolved Assessment and plan: October 02. Resolved. Continue present regimen (2) Weight loss Current Visit: Yes Status: Chronic Assessment and plan: October 02. CT scans of chest, abdomen, and pelvis did not show obvious etiology. Her TSH was normal. (3) Anemia Current Visit: No Status: Chronic Assessment and plan: October 02. Will recheck labs in a.m. October 04. Hemoglobin has risen to 10.1. Qualifiers: Anemia type: unspecified type Qualified Code(s): D64.9 - Anemia, unspecified (4) CKD (chronic kidney disease) Current Visit: No Status: Chronic Assessment and plan: October 02. Her creatinine is 0.7 with estimated GFR greater than 60. Continue present management October 04. Creatinine remains in normal range 0.80. Qualifiers: Chronic kidney disease stage: stage 3 (moderate) Qualified Code(s): N18.3 - Chronic kidney disease, stage 3 (moderate) (5) Hx of rheumatoid arthritis Current Visit: No Status: Chronic Assessment and plan: October 02. Continue leflunomide and abatacept - Subjective Interval history: October 02. She has no new complaints and feels she is getting slightly stronger. She is awaiting word from her insurance company to approve placement at SNF October 03. She has no new complaints. She is still awaiting word from the insurance company for SNF placement approval October 04. She has no new complaints. - Constitutional Vitals: Temp Pulse Resp BP Pulse Ox 97.6 F 101 16 118/77 99 10/04/16 07:44 10/04/16 07:44 10/04/16 07:44 10/04/16 07:44 10/04/16 07:44 Exam: She is sitting on the side of bed resting comfortably. Her affect is bright and cheerful. I reviewed her medications and lab results. Internal Medicine: Result - Labs CBC & Chem 7: 10/04/16 08:10 10/04/16 08:10 Labs: Short CBC 10/04/16 Range/Units 08:10 WBC 1.8 L (4.3-11.1) K/mcL Hgb 10.1 L D (11.5-15.4) g/dL Hct 30.7 L (35.3-44.9) % Plt Count 183 (140-400) K/mcL Neutrophils # 0.6 L (1.6-8.9) K/mcL BMP 10/04/16 08:10 Sodium 137 Potassium 4.2 Chloride 103 Carbon Dioxide 25 BUN 12 Creatinine 0.80 Glucose 86 Calcium 9.8 Liver Function 10/04/16 Range/Units 08:10 Total Bilirubin 0.3 (0.2-1.2) mg/dL AST 21 (5-34) Units/L ALT 22 (0-55) Units/L Alkaline Phosphatase 159 H (38-126) Units/L Albumin 2.3 L (3.5-5.0) g/dL Consult Discharge Plan - Plan Referrals: Tanner Thomas, WARP SPLITTER [Primary Care Provider] - 1 week
[2016-10-05] MEDS: *HR* Enoxaparin 40 MG/0.4 ML SYRINGE SQ SCH (06:14)
[2016-10-05] MEDS: Pregabalin 25 MG CAPSULE PO SCH ×3 (08:28→21:34)
[2016-10-05] MEDS: Leflunomide [Leflunomide] 20 MG PO SCH (08:29)
[2016-10-05] MEDS: *HR* OxyCODONE Immed Rel 5 MG TABLET PO PRN ×2 (08:29→21:33)
--- NOTE | 2016-10-05 17:24 | Internal Med Progress Note ---
Date of Encounter: 10/05/16 Time of Encounter: 17:05 - Assessment and plan (1) Hyponatremia Current Visit: Yes Status: Resolved Assessment and plan: October 02. Resolved. Continue present regimen (2) Weight loss Current Visit: Yes Status: Chronic Assessment and plan: October 02. CT scans of chest, abdomen, and pelvis did not show obvious etiology. Her TSH was normal. (3) Anemia Current Visit: No Status: Chronic Assessment and plan: October 02. Will recheck labs in a.m. October 04. Hemoglobin has risen to 10.1. Qualifiers: Anemia type: unspecified type Qualified Code(s): D64.9 - Anemia, unspecified (4) CKD (chronic kidney disease) Current Visit: No Status: Chronic Assessment and plan: October 02. Her creatinine is 0.7 with estimated GFR greater than 60. Continue present management October 04. Creatinine remains in normal range 0.80. Qualifiers: Chronic kidney disease stage: stage 3 (moderate) Qualified Code(s): N18.3 - Chronic kidney disease, stage 3 (moderate) (5) Hx of rheumatoid arthritis Current Visit: No Status: Chronic Assessment and plan: October 02. Continue leflunomide and abatacept - Subjective Interval history: October 02. She has no new complaints and feels she is getting slightly stronger. She is awaiting word from her insurance company to approve placement at SNF October 03. She has no new complaints. She is still awaiting word from the insurance company for SNF placement approval October 04. She has no new complaints. October 05. She has no new complaints and feels stronger. - Constitutional Vitals: Temp Pulse Resp BP Pulse Ox 99.4 F 106 16 132/80 97 10/05/16 14:45 10/05/16 15:07 10/05/16 14:45 10/05/16 15:07 10/05/16 14:45 Exam: She is resting comfortably in bed. Her affect is bright and cheerful. I reviewed her medications and lab results. Internal Medicine: Result - Labs CBC & Chem 7: 10/04/16 08:10 10/04/16 08:10 Consult Discharge Plan - Plan Referrals: Tanner Thomas, BRAZER INDUCTION [Primary Care Provider] - 1 week
[2016-10-06] MEDS: *HR* Enoxaparin 40 MG/0.4 ML SYRINGE SQ SCH (09:00)
[2016-10-06] MEDS: Leflunomide [Leflunomide] 20 MG PO SCH (09:01)
[2016-10-06] MEDS: Pregabalin 25 MG CAPSULE PO SCH ×3 (09:01→21:12)
[2016-10-06] MEDS: *HR* OxyCODONE Immed Rel 5 MG TABLET PO PRN ×2 (14:08→21:12)
--- NOTE | 2016-10-06 16:02 | Internal Med Progress Note ---
Date of Encounter: 10/06/16 Time of Encounter: 15:55 - Assessment and plan (1) Hyponatremia Current Visit: Yes Status: Resolved Assessment and plan: October 02. Resolved. Continue present regimen (2) Weight loss Current Visit: Yes Status: Chronic Assessment and plan: October 02. CT scans of chest, abdomen, and pelvis did not show obvious etiology. Her TSH was normal. (3) Anemia Current Visit: No Status: Chronic Assessment and plan: October 02. Will recheck labs in a.m. October 04. Hemoglobin has risen to 10.1. Qualifiers: Anemia type: unspecified type Qualified Code(s): D64.9 - Anemia, unspecified (4) CKD (chronic kidney disease) Current Visit: No Status: Chronic Assessment and plan: October 02. Her creatinine is 0.7 with estimated GFR greater than 60. Continue present management October 04. Creatinine remains in normal range 0.80. Qualifiers: Chronic kidney disease stage: stage 3 (moderate) Qualified Code(s): N18.3 - Chronic kidney disease, stage 3 (moderate) (5) Hx of rheumatoid arthritis Current Visit: No Status: Chronic Assessment and plan: October 02. Continue leflunomide and abatacept - Subjective Interval history: October 02. She has no new complaints and feels she is getting slightly stronger. She is awaiting word from her insurance company to approve placement at SNF October 03. She has no new complaints. She is still awaiting word from the insurance company for SNF placement approval October 04. She has no new complaints. October 05. She has no new complaints and feels stronger. October 06. She has no specific complaints. She feels her blood pressure drops when she stands. - Constitutional Vitals: Temp Pulse Resp BP Pulse Ox 98.2 F 72 16 127/64 94 L 10/06/16 14:56 10/06/16 14:56 10/06/16 14:56 10/06/16 14:56 10/06/16 14:56 Exam: She is resting comfortably in bed and appears in no acute distress. Her affect is bright and cheerful. Reviewed her medications and lab results. We are still waiting on approval from insurance for SNF placement. Internal Medicine: Result - Labs CBC & Chem 7: 10/04/16 08:10 10/04/16 08:10 Consult Discharge Plan - Plan Referrals: Tanner Thomas, CLARIBEL [Primary Care Provider] - 1 week
[2016-10-07] MEDS: *HR* Enoxaparin 40 MG/0.4 ML SYRINGE SQ SCH (06:42)
[2016-10-07 07:27] LABS: Eosinophils # 0.2 K/mcL (0.0-0.6); Eosinophils % 9.1 %; Hematocrit 28.5 % (35.3-44.9); Hemoglobin 9.3 g/dL (11.5-15.4); Lymphocytes # 0.7 K/mcL (0.6-4.6); Lymphocytes % 31.6 %; Mean Corpuscular HGB Conc 32.6 g/dL (31.6-35.5); Mean Corpuscular Hemoglobin 27.4 pg (28.0-33.3); Mean Corpuscular Volume 84.1 fL (83.0-100.0); Monocytes # 0.4 K/mcL (0.0-1.3); Monocytes % 16.7 %; Neutrophils # 0.9 K/mcL (1.6-8.9); Platelet Count 194 K/mcL (140-400); Red Blood Count 3.39 M/mcL (3.82-4.97); Red Cell Distribution Width 15.1 % (11.5-14.5); Segmented Neutrophils % 40.6 %
[2016-10-07 07:42] LABS: BUN/Creatinine Ratio 17 (6-26); Blood Urea Nitrogen 15 mg/dL (7-20); Calcium 9.3 mg/dL (8.6-10.8); Carbon Dioxide 24 mEq/L (19-29); Chloride 103 mEq/L (98-109); Glucose 86 mg/dL (70-99); Osmolality,Calculated 284 (280-300); Sodium 137 mEq/L (136-145); eGFR For African Americans > 60 (> 60); eGFR For Non-African Americans > 60 (> 60)
[2016-10-07] MEDS: Pregabalin 25 MG CAPSULE PO SCH ×3 (08:24→21:15)
[2016-10-07] MEDS: *HR* OxyCODONE Immed Rel 5 MG TABLET PO PRN ×2 (08:37→21:15)
[2016-10-07] MEDS: Leflunomide [Leflunomide] 20 MG PO SCH (08:53)
--- NOTE | 2016-10-07 15:58 | Internal Med Progress Note ---
Date of Encounter: 10/07/16 Time of Encounter: 15:50 - Assessment and plan (1) Hyponatremia Current Visit: Yes Status: Resolved Assessment and plan: October 02. Resolved. Continue present regimen (2) Weight loss Current Visit: Yes Status: Chronic Assessment and plan: October 02. CT scans of chest, abdomen, and pelvis did not show obvious etiology. Her TSH was normal. (3) Anemia Current Visit: No Status: Chronic Assessment and plan: October 02. Will recheck labs in a.m. October 04. Hemoglobin has risen to 10.1. October 07. Hemoglobin was 9.3 today. Anemia testing done October 01 showed no factor deficiency. Qualifiers: Anemia type: unspecified type Qualified Code(s): D64.9 - Anemia, unspecified (4) CKD (chronic kidney disease) Current Visit: No Status: Chronic Assessment and plan: October 02. Her creatinine is 0.7 with estimated GFR greater than 60. Continue present management October 04. Creatinine remains in normal range 0.80. Qualifiers: Chronic kidney disease stage: stage 3 (moderate) Qualified Code(s): N18.3 - Chronic kidney disease, stage 3 (moderate) (5) Hx of rheumatoid arthritis Current Visit: No Status: Chronic Assessment and plan: October 02. Continue leflunomide and abatacept - Subjective Interval history: October 02. She has no new complaints and feels she is getting slightly stronger. She is awaiting word from her insurance company to approve placement at SNF October 03. She has no new complaints. She is still awaiting word from the insurance company for SNF placement approval October 04. She has no new complaints. October 05. She has no new complaints and feels stronger. October 06. She has no specific complaints. She feels her blood pressure drops when she stands. October 07. She has no new complaints. We are still awaiting word from the insurance company for SNF placement approval - Constitutional Vitals: Temp Pulse Resp BP Pulse Ox 97.8 F 87 16 102/68 99 10/07/16 15:00 10/07/16 15:00 10/07/16 15:00 10/07/16 15:00 10/07/16 15:00 Exam: She is resting comfortably in bed. Her affect is bright and cheerful. I reviewed her medications and lab results. Internal Medicine: Result - Labs CBC & Chem 7: 10/07/16 07:15 10/07/16 07:15 Labs: Short CBC 10/07/16 Range/Units 07:15 WBC 2.1 L (4.3-11.1) K/mcL Hgb 9.3 L (11.5-15.4) g/dL Hct 28.5 L (35.3-44.9) % Plt Count 194 (140-400) K/mcL Neutrophils # 0.9 L (1.6-8.9) K/mcL BMP 10/07/16 07:15 Sodium 137 Potassium 4.0 Chloride 103 Carbon Dioxide 24 BUN 15 Creatinine 0.86 Glucose 86 Calcium 9.3 Consult Discharge Plan - Plan Referrals: Tanner Thomas, ENVIRONMENTAL TECHNICAL OFFICER [Primary Care Provider] - 1 week
[2016-10-08] MEDS: *HR* Enoxaparin 40 MG/0.4 ML SYRINGE SQ SCH (06:59)
[2016-10-08] MEDS: *HR* OxyCODONE Immed Rel 5 MG TABLET PO PRN ×2 (09:43→21:46)
[2016-10-08] MEDS: Pregabalin 25 MG CAPSULE PO SCH ×3 (09:43→21:46)
[2016-10-08] MEDS: Leflunomide [Leflunomide] 20 MG PO SCH (09:48)
--- NOTE | 2016-10-08 15:39 | Internal Med Progress Note ---
Date of Encounter: 10/08/16 Time of Encounter: 15:30 - Assessment and plan (1) Hyponatremia Current Visit: Yes Status: Resolved Assessment and plan: October 02. Resolved. Continue present regimen (2) Weight loss Current Visit: Yes Status: Chronic Assessment and plan: October 02. CT scans of chest, abdomen, and pelvis did not show obvious etiology. Her TSH was normal. (3) Anemia Current Visit: No Status: Chronic Assessment and plan: October 02. Will recheck labs in a.m. October 04. Hemoglobin has risen to 10.1. October 07. Hemoglobin was 9.3 today. Anemia testing done October 01 showed no factor deficiency. Qualifiers: Anemia type: unspecified type Qualified Code(s): D64.9 - Anemia, unspecified (4) CKD (chronic kidney disease) Current Visit: No Status: Chronic Assessment and plan: October 02. Her creatinine is 0.7 with estimated GFR greater than 60. Continue present management October 04. Creatinine remains in normal range 0.80. October 08. Creatinine was 0.86 yesterday. Continue present regimen Qualifiers: Chronic kidney disease stage: stage 3 (moderate) Qualified Code(s): N18.3 - Chronic kidney disease, stage 3 (moderate) (5) Hx of rheumatoid arthritis Current Visit: No Status: Chronic Assessment and plan: October 02. Continue leflunomide and abatacept - Subjective Interval history: October 02. She has no new complaints and feels she is getting slightly stronger. She is awaiting word from her insurance company to approve placement at [facility] October 03. She has no new complaints. She is still awaiting word from the insurance company for SNF placement approval October 04. She has no new complaints. October 05. She has no new complaints and feels stronger. October 06. She has no specific complaints. She feels her blood pressure drops when she stands. October 07. She has no new complaints. We are still awaiting word from the insurance company for SNF placement approval October 08. Feel she is getting stronger. She reports she talked to a sales and service representative from her insurance company last night and they reported they were still working on determining approval to SNF - Constitutional Vitals: Temp Pulse Resp BP Pulse Ox 97.3 F L 96 17 117/69 100 10/08/16 15:17 10/08/16 15:17 02/09/17 15:17 10/08/16 15:17 10/08/16 15:17 Exam: She is lying in bed resting comfortably. Her affect is bright and cheerful. I reviewed her medications and lab results. Internal Medicine: Result - Labs CBC & Chem 7: 10/07/16 07:15 10/07/16 07:15 Consult Discharge Plan - Plan Referrals: Tanner Thomas, CLIENT SUCCESS DIRECTOR [Primary Care Provider] - 1 week
[2016-10-09] MEDS: Pregabalin 25 MG CAPSULE PO SCH (08:26)
[2016-10-09] MEDS: *HR* Enoxaparin 40 MG/0.4 ML SYRINGE SQ SCH (08:27)
[2016-10-09 11:14] VITALS: BP 122/77
[2016-10-09] MEDS ORDERED: Pneumococcal 23 Valent Vaccine 25 MCG/0.5 ML VIAL IM ONE (12:36)
[2016-10-09] MEDS: *HR* OxyCODONE Immed Rel 5 MG TABLET PO PRN (13:03)
--- NOTE | 2016-10-09 13:38 | Discharge Summary ---
Date of Encounter: 10/09/16 Time of Encounter: 13:20 - Discharge Diagnosis (1) Hyponatremia Priority: Primary Status: Resolved (2) Weight loss Priority: Secondary Status: Chronic (3) Anemia Priority: Secondary Status: Chronic Qualifiers: Qualified Code(s): D64.9 - Anemia, unspecified (4) CKD (chronic kidney disease) Priority: Secondary Status: Chronic Qualifiers: Qualified Code(s): N18.3 - Chronic kidney disease, stage 3 (moderate) (5) Hx of rheumatoid arthritis Priority: Secondary Status: Chronic - Discharge Medications Home Medications: Abatacept [Orencia] 125 mg SQ QWEEK 09/18/16 [History] Leflunomide 20 mg PO DAILY 09/18/16 [History] PredniSONE 3 mg PO DAILY 09/18/16 [History] OxyCODONE Immed Rel [Roxicodone 5 MG] 10 mg PO Q6HR PRN #14 tablet 09/21/16 [Rx] Pregabalin [Lyrica] 25 mg PO TID #90 capsule 09/21/16 [Rx] Allergies/Adverse Reactions: Allergies No Known Allergies Allergy (Verified 09/17/16 17:14) Date of admission: 09/29/16 18:45 Primary care physician: Tanner Thomas CNP Consults: 09/30/16 11:40 Consult to Occupational Therapy [CONS] Routine Comment: Evaluate, develop and implement POC Consult to Physical Therapy [CONS] Routine Comment: Evaluate, develop and implement POC - Patient Status Disposition: Home Health Service Condition: Good Functional capacity at discharge: uses cane/walker Overall status at discharge: patient is progressing back to baseline - Discharge Instructions Follow Up With: Tanner Thomas CNP [Primary Care Provider] - 1 week - Diet and Activity Activity: as per physical therapy Diet: advance to your usual diet Hospital course: Ms. Leiva is a 66 year old female who came to the emergency room after having a fall while attempting to get in her car. Her caught her before she hit the ground and sustained any significant injuries. She was evaluated in emergency room and found to have hyponatremia and microcytic anemia. She was admitted to [facility] for ongoing care needs. Initial orders were written by the emergency room physician. I saw her on September 30 and performed the history and physical. She was admitted to observation status. Physical therapy and occupational therapy evaluations were done. On October 01 she stated she felt improved and stable to go home. Following the discharge summary dictation and the ordered for discharge written , she decided she needed additional therapy. She remained in observation bed and contact was made with her insurance company about SNF placement. After 7 days, her insurance company determined she could be discharged [facility]. There were no beds available at [facility] however and the patient did not want to go to an in-network SNF otherwise since the closest one was [place]. She chose to be discharged home with home health services. CT scan of chest abdomen pelvis did not show obvious etiology for her reported weight loss. Anemia testing done October 01 showed no factor deficiency. Her hemoglobin remained stable during hospitalization. Her lisinopril and metoprolol were discontinued. Her blood pressure remains stable off these medications. Her creatinine improved to 0.86 on 10/07/2016. She will be discharged home and follow with Tanner Thomas CNP within 1 week. - Time Spent with Patient Total time spent providing and/or coordinating discharge services: - Constitutional Vitals: Temp Pulse Resp BP Pulse Ox 98.7 F 103 16 122/77 95 10/09/16 11:14 10/09/16 11:14 10/09/16 11:14 10/09/16 11:14 10/09/16 11:14
--- NOTE | 2016-10-09 13:48 | Physician Discharge Referral ---
Home Health/Hosp Referral Info Transfer to: Home Health Attending Provider: Edy Provider in Charge Post Discharge: PCP (Tanner Thomas CNP) - Diagnosis (1) Hyponatremia Priority: Primary Status: Resolved (2) Weight loss Priority: Secondary Status: Chronic (3) Anemia Priority: Secondary Status: Chronic (4) CKD (chronic kidney disease) Priority: Secondary Status: Chronic (5) Hx of rheumatoid arthritis Priority: Secondary Status: Chronic - Respiratory Orders Smoking Cessation: Smoking cessation has been advised. For more information, call the [place] Tobacco Quit Line at 8-708-TTPH-NOW. - Diet/Nutrition Diet/Nutrition Orders: Regular - Activity Activity Orders: Walker - Services Needed Following services are medically necessary services: Nursing, Home Health Aide, Physical Therapy, Occupational Therapy - Transfer Medications Home Medications: Abatacept [Orencia] 125 mg SQ QWEEK 09/18/16 [History] Leflunomide 20 mg PO DAILY 09/18/16 [History] PredniSONE 3 mg PO DAILY 09/18/16 [History] OxyCODONE Immed Rel [Roxicodone 5 MG] 10 mg PO Q6HR PRN #14 tablet 09/21/16 [Rx] Pregabalin [Lyrica] 25 mg PO TID #90 capsule 09/21/16 [Rx] Allergies/Adverse Reactions: Allergies No Known Allergies Allergy (Verified 09/17/16 17:14) Certification: Further, I certify that my clinical findings support that this patient is homebound (i.e. absences from home require considerable and taxing effort and are for medical reasons or christian services or infrequently or short duration when for other reasons) because: Homebound Reason: Leaving home requires considerable and taxing effort due to condition (Impaired walking ability, deconditioning, rheumatoid arthritis) Attestation: My signature below is to certify that this patient is under my care and that I, or nurse practitioner, or a physician's surgery assistant working with me, has a face-to -face encounter with this patient.
== END 2016-10-09 15:08 | disposition home health service (06) ==
LOC: EMEROOPIK 13:27 → INPPIK 13:27
PROVIDERS: ADMIT Internal Medicine; ATTEND Internal Medicine